=== PATIENT | female | born 1955 | race Caucasian/White ===

== ENCOUNTER 2021-11-03 08:25 | Inpatient (IN) | payer SELFPAY ==
[~2021-11-03] VITALS: Ht 160 cm; Wt 72.6 kg
[2021-11-03] MEDS ORDERED: ONDANSETRON HCL 4MG/2ML INJ IV STA (09:30)
[2021-11-03] MEDS ORDERED: TETANUS, DIPHTHERIA, PERTUSSIS VAC/PF 0.5ML (>10YR OLD) IM ONE (09:30)
[2021-11-03] MEDS ORDERED: SODIUM CHLORIDE 0.9% 1,000 ML IV ONE (09:30)
[2021-11-03] MEDS ORDERED: MORPHINE SULFATE 4 MG/ML CPJ (NOT FOR IM USE) IV STA (09:30)
[2021-11-03] MEDS ORDERED: CEFAZOLIN 1000MG PREMIX 50 ML IV ONE (09:30)
[2021-11-03] MEDS ORDERED: ETOMIDATE 2MG/ML 10ML VIAL IV ONE (09:45)
[2021-11-03] MEDS ORDERED: MORPHINE SULFATE 4 MG/ML CPJ (NOT FOR IM USE) IV ONE (09:45)
[2021-11-03 10:20] LABS: BASOPHILS % 0.4 % (0.0-2.0); EOSINOPHILS % 3.4 % (0.0-5.0); HEMATOCRIT. 38.7 % (36.0-48.0); HEMOGLOBIN. 12.8 g/dL (12.0-16.0); LYMPHOCYTES % 27.3 % (20.0-50.0); MEAN CORPUSCULAR HEMOGLOBIN 30.3 pg (28.0-32.0); MEAN CORPUSCULAR VOLUME 91.7 fL (81.0-99.0); MEAN PLATELET VOLUME 9.1 fl (7.4-10.4); MONOCYTES % 8.3 % (2.0-8.0); NEUTROPHILS % 60.6 % (40.0-76.0); PLATELET 324 x1000/uL (130-400); RED BLOOD CELL COUNT 4.22 mill/uL (4.2-5.4); RED CELL DISTRIBUTION WIDTH 13.5 % (11.6-14.6)
[2021-11-03 10:23] LABS: CHLORIDE 104 mEq/L (98-107)
[2021-11-03] MEDS ORDERED: GENTAMICIN 80MG PREMIX 100 ML IV ONE (10:45)
[2021-11-03] MEDS ORDERED: LIDOCAINE HCL/EPINEPHRINE 1%-EPI 1:100,000 20 ML VIAL INFIL ONE (10:45)
[2021-11-03] MEDS ORDERED: LIDOCAINE HCL/EPINEPHRINE 1%-EPI 1:100,000 10 ML VIAL INFIL NR (11:00)
[2021-11-03] MEDS ORDERED: POTASSIUM CHLORIDE 20MEQ TABLET SR PO ONE (11:45)
[2021-11-03 13:44] LABS: INR 1.1; PROTHROMBIN TIME 11.3 sec (9.6-11.0)
[2021-11-03] MEDS ORDERED: BUPIVACAINE HCL/PF 0.25% (2.5MG/ML) 10ML ONE (14:27)
[2021-11-03] MEDS ORDERED: VANCOMYCIN HCL 1 GM/VIAL ONE ×2 (14:27→17:05)
[2021-11-03] MEDS ORDERED: POLYMYXIN B SULFATE 500000 UNITS/VIAL ONE (14:28)
[2021-11-03] MEDS ORDERED: LABETALOL 5MG/ML SYR 20 MG/4 ML SYRINGE IV PRN (14:30)
[2021-11-03] MEDS ORDERED: ONDANSETRON HCL 4MG/2ML INJ IV PRN ×3 (14:30→16:15)
[2021-11-03] MEDS ORDERED: HYDROMORPHONE HCL/PF 2MG/ML CPJ IV PRN ×2 (14:30→16:15)
[2021-11-03] MEDS ORDERED: MEPERIDINE HCL/PF 25MG/ML CPJ IV PRN (14:30)
[2021-11-03] MEDS ORDERED: ROPIVACAINE HCL 10MG/ML 20 ML VIAL EPI ONE (14:59)
[2021-11-03] MEDS ORDERED: HYDROMORPHONE HCL/PF 2MG/ML (OR) ONE (15:28)
[2021-11-03] MEDS ORDERED: DEXAMETHASONE 4MG/ML 1ML VIAL ONE (15:29)
[2021-11-03] MEDS ORDERED: ACETAMINOPHEN 325MG TABLET PO PRN (16:15)
[2021-11-03] MEDS ORDERED: MAGNESIUM/ALUMINUM HYDROXIDE/SIMETHICONE 30ML UDC PO PRN (16:15)
[2021-11-03] MEDS ORDERED: CLONIDINE 0.1MG TABLET PO PRN (16:15)
[2021-11-03] MEDS ORDERED: HYDROCODONE/ACETAMINOPHEN 5/325MG TABLET PO PRN (16:15)
[2021-11-03] MEDS ORDERED: DOCUSATE SODIUM 100MG CAPSULE PO PRN (16:15)
[2021-11-03] MEDS: ENOXAPARIN 40MG/0.4ML SYR SUBCUT SCH (16:30)
[2021-11-03 20:30] VITALS: BP 140/82
[2021-11-03] MEDS ORDERED: VALS320T2 MT (22:00)
[2021-11-03 22:05] VITALS: BP 138/68
[2021-11-04] VITALS: BP 140/84
[2021-11-04] MEDS: CEFAZOLIN 1000MG PREMIX 50 ML IV SCH ×3 (00:37→13:24)
[2021-11-04 04:00] VITALS: BP 130/75
[2021-11-04] MEDS: HYDROCODONE/ACETAMINOPHEN 5/325MG TABLET PO PRN ×4 (05:03→23:36)
[2021-11-04 07:26] LABS: HEMATOCRIT. 30.1 % (36.0-48.0); HEMOGLOBIN. 9.8 g/dL (12.0-16.0); MEAN CORPUSCULAR HEMOGLOBIN 30.4 pg (28.0-32.0); MEAN CORPUSCULAR VOLUME 93.2 fL (81.0-99.0); MEAN PLATELET VOLUME 8.7 fl (7.4-10.4); MONOCYTES % 6.8 % (2.0-8.0); NEUTROPHILS % 84.2 % (40.0-76.0); PLATELET 288 x1000/uL (130-400); RED BLOOD CELL COUNT 3.23 mill/uL (4.2-5.4); RED CELL DISTRIBUTION WIDTH 13.2 % (11.6-14.6)
[2021-11-04 08:00] VITALS: BP 121/74
[2021-11-04] MEDS: AMLODIPINE 10MG TABLET PO SCH (08:39)
[2021-11-04 08:45] LABS: CHLORIDE 107 mEq/L (98-107)
[2021-11-04] MEDS: HYDROMORPHONE HCL/PF 2MG/ML CPJ IV PRN (11:16)
[2021-11-04 12:00] VITALS: BP 110/52
[2021-11-04 16:00] VITALS: BP 117/61
[2021-11-04 20:00] VITALS: BP 104/58
[2021-11-05] VITALS: BP 103/50
[2021-11-05] MEDS: HYDROMORPHONE HCL/PF 2MG/ML CPJ IV PRN ×2 (04:36→16:07)
[2021-11-05 04:53] VITALS: BP 123/73
[2021-11-05] MEDS ORDERED: POVIDONE-IODINE 10% TOPICAL SOLN 240ML TOP SCH (05:00)
[2021-11-05 06:39] LABS: BASOPHILS % 0.2 % (0.0-2.0); EOSINOPHILS % 1.8 % (0.0-5.0); HEMATOCRIT. 26.4 % (36.0-48.0); HEMOGLOBIN. 8.9 g/dL (12.0-16.0); LYMPHOCYTES % 27.1 % (20.0-50.0); MEAN CORPUSCULAR HEMOGLOBIN 31.1 pg (28.0-32.0); MEAN CORPUSCULAR VOLUME 92.3 fL (81.0-99.0); MEAN PLATELET VOLUME 8.4 fl (7.4-10.4); MONOCYTES % 10.2 % (2.0-8.0); NEUTROPHILS % 60.7 % (40.0-76.0); PLATELET 262 x1000/uL (130-400); RED BLOOD CELL COUNT 2.86 mill/uL (4.2-5.4); RED CELL DISTRIBUTION WIDTH 13.2 % (11.6-14.6)
[2021-11-05 08:00] VITALS: BP 126/58
[2021-11-05] MEDS: AMLODIPINE 10MG TABLET PO SCH (08:57)
[2021-11-05] MEDS: HYDROCODONE/ACETAMINOPHEN 5/325MG TABLET PO PRN ×2 (08:58→21:34)
[2021-11-05 12:00] VITALS: BP 106/65
[2021-11-05 16:00] VITALS: BP 130/56
[2021-11-05 20:00] VITALS: BP 106/54
[2021-11-06] VITALS: BP 95/56
[2021-11-06] MEDS: HYDROCODONE/ACETAMINOPHEN 5/325MG TABLET PO PRN ×3 (01:50→15:47)
[2021-11-06 04:00] VITALS: BP 95/56
[2021-11-06 08:00] VITALS: BP 112/64
[2021-11-06 08:12] LABS: BASOPHILS % 0.3 % (0.0-2.0); EOSINOPHILS % 3.7 % (0.0-5.0); HEMATOCRIT. 26.1 % (36.0-48.0); HEMOGLOBIN. 9.1 g/dL (12.0-16.0); MEAN CORPUSCULAR HEMOGLOBIN 31.9 pg (28.0-32.0); MEAN CORPUSCULAR VOLUME 91.8 fL (81.0-99.0); MEAN PLATELET VOLUME 8.6 fl (7.4-10.4); MONOCYTES % 10.6 % (2.0-8.0); NEUTROPHILS % 59.4 % (40.0-76.0); PLATELET 284 x1000/uL (130-400); RED BLOOD CELL COUNT 2.84 mill/uL (4.2-5.4); RED CELL DISTRIBUTION WIDTH 13.2 % (11.6-14.6)
[2021-11-06] MEDS: AMLODIPINE 10MG TABLET PO SCH (08:59)
[2021-11-06 12:00] VITALS: BP 125/51
[2021-11-06 16:00] VITALS: BP 125/67
[2021-11-06] MEDS: ENOXAPARIN 40MG/0.4ML SYR SUBCUT SCH (16:30)
[2021-11-06 18:55] VITALS: BP 125/77
== END 2021-11-06 20:00 | disposition home or self-care (01) | DRG 313 ==
LOC: ER 08:34 → 6EST 13:25 → ENRESERV 18:16 → CANBEDREQ 19:13
PROVIDERS: ADMIT Hospitalist; ATTEND Hospitalist
PROC: 0YQL0ZZ Repair Left Ankle Region, Open Approach (ICD-10-PCS; principal; 2021-11-03)
PROC: 0QSH04Z Reposition Left Tibia with Internal Fixation Device, Open Approach (ICD-10-PCS; 2021-11-03)
PROC: 0QSK04Z Reposition Left Fibula with Internal Fixation Device, Open Approach (ICD-10-PCS; 2021-11-03)
PROC: 0SPGX5Z Removal of External Fixation Device from Left Ankle Joint, External Approach (ICD-10-PCS; 2021-11-03)
PROC: 2W3TX1Z Immobilization of Left Foot using Splint (ICD-10-PCS; 2021-11-03)
PROC: 0SSGXZZ Reposition Left Ankle Joint, External Approach (ICD-10-PCS; 2021-11-03)
DX: S82.452B Displaced comminuted fracture of shaft of left fibula, initial encounter for open fracture type I or II (principal); S82.892B Other fracture of left lower leg, initial encounter for open fracture type I or II; S82.252B Displaced comminuted fracture of shaft of left tibia, initial encounter for open fracture type I or II; I10 Essential (primary) hypertension; I70.233 Atherosclerosis of native arteries of right leg with ulceration of ankle; W10.8XXA Fall (on) (from) other stairs and steps, initial encounter; Z20.822 Contact with and (suspected) exposure to COVID-19; M21.072 Valgus deformity, not elsewhere classified, left ankle; Z98.1 Arthrodesis status; Y93.89 Activity, other specified; Y92.89 Other specified places as the place of occurrence of the external cause; Y99.8 Other external cause status
CPT/HCPCS: 36415; 73590; 73600; 73610; 76000; 80053; 85025; 86850; 86900; 87426; 88300; 90715; 93005; 97116; 97162; 97166; 97530; 99285; J0690; J1100; J1170; J1580; J1650; J2175; J2270; J2405; J2795; J3370; J3490; J7030; J7040